=== PATIENT | female | born 1945 | race Caucasian/White ===

== ENCOUNTER 2022-03-10 12:25 | Inpatient (IN) | payer MEDICARE, OTHER ==
[~2022-03-10] VITALS: Ht 165.1 cm; Wt 63.5 kg
[2022-03-10 13:13] LABS: HEMATOCRIT 38.7 % (31.2-41.9); MEAN CORPUSCULAR HEMOGLOBIN 31.9 uug (24.7-32.8); MEAN CORPUSCULAR VOLUME 93.1 fL (75.5-95.3); PLATELET COUNT (AUTO) 253 K/uL (179-408)
--- NOTE | 2022-03-10 13:24 | NUR ---
Paged Dr Bradford for neuro consult, awaiting call back.
[2022-03-10 13:34] LABS: CREATININE 0.9 mg/dL (0.6-1.3)
--- NOTE | 2022-03-10 13:34 | NUR ---
Dr Bradford spoke to Dr Hopper for nuero consult.
[2022-03-10 13:39] LABS: BILIRUBIN,TOTAL 0.4 mg/dL (0.2-1.0); TOTAL PROTEIN, SERUM 7.3 g/dL (6.4-8.2)
--- NOTE | 2022-03-10 16:20 | NUR ---
Pt to be admitted to TELE by Samuel Duron NP.
--- NOTE | 2022-03-10 17:00 | NUR ---
Pt transfered to tele bed 312.
--- NOTE | 2022-03-10 17:30 | NUR ---
RECEIVED PT FROM ER, NO PAIN,NO DISTRESS, NO OTHER COMPLAINS VERBALIZED FROM THE PATIENT
[2022-03-10] MEDS ORDERED: ONDANSETRON 4 MG/2 ML VIAL IV PRN (18:00)
[2022-03-10] MEDS ORDERED: MAGNESIUM HYDROXIDE 30 ML LIQUID UDC PO PRN (18:00)
[2022-03-10] MEDS ORDERED: HYDROCODONE/APAP 5-325MG TABLET PO PRN (18:00)
[2022-03-10] MEDS ORDERED: ACETAMINOPHEN 325 MG TABLET PO PRN (18:00)
--- NOTE | 2022-03-10 18:00 | NUR ---
PATIENT SAID SHE IS FEELING A BIT ITCHY AND ALLERGIC. REPORTED TO FLORENCE COLON.
[2022-03-10] MEDS: ASPIRIN 81 MG TAB.CHEW PO SCH (18:18)
[2022-03-10] MEDS ORDERED: hydrOXYzine HCL 10 MG TABLET PO PRN (18:45)
--- NOTE | 2022-03-10 19:40 | NUR ---
Received patient lying in bed. AAOX4. In no apparent distress. Denies any pain or SOB. NIHHS -0. NSR on tele with HR of 77/min. IV site on left FA intact and patent. Needs assessed and attended to. Safety measure initiated and call light within reached.
[2022-03-10 20:20] VITALS: BP 120/55
[2022-03-10] MEDS: ATORVASTATIN 40 MG TABLET PO SCH ×2 (20:21→20:36)
[2022-03-11 00:06] VITALS: BP 125/60
[2022-03-11] MEDS ORDERED: PANTOPRAZOLE SODIUM 40 MG TABLET.DR PO SCH (07:00)
--- NOTE | 2022-03-11 08:00 | NUR ---
AWAKE ALERT AND ORIENTED X3 DENIES CHEST PAIN OR SOB, SR ON MONITOR
[2022-03-11] MEDS: ASPIRIN 81 MG TAB.CHEW PO SCH (08:10)
[2022-03-11 08:13] LABS: HEMATOCRIT 36.8 % (31.2-41.9); MEAN CORPUSCULAR HEMOGLOBIN 31.9 uug (24.7-32.8); MEAN CORPUSCULAR VOLUME 94.4 fL (75.5-95.3); PLATELET COUNT (AUTO) 222 K/uL (179-408)
[2022-03-11 08:26] LABS: THYROID STIMULATING HORMONE 2.76 mIU/mL (0.358-3.740)
[2022-03-11 08:39] LABS: CREATININE 1.2 mg/dL (0.6-1.3); MAGNESIUM 2.2 mg/dL (1.8-2.4); POTASSIUM 4.2 mmol/L (3.5-5.1)
[2022-03-11] MEDS ORDERED: SWABABLE VALVE TRANSFER SET EA MC ONE (09:27)
[2022-03-11] MEDS ORDERED: IV NORMAL SALINE 250 ML IV ONE (09:27)
[2022-03-11] MEDS ORDERED: IOHEXOL 350 100 ML INFUS..BTL ONE (09:27)
[2022-03-11] MEDS ORDERED: methylPREDNISolone SOD SUCC 125 MG/2 ML VIAL IV ONE (10:30)
[2022-03-11 11:51] VITALS: BP 128/65
--- NOTE | 2022-03-11 12:00 | NUR ---
HOSPITALIST SPOKE WITH PATIENT REGARDING CT ORDER VERSUS PATIENT WITH PAST HISTORY OF IODINE REACTION, PER HOSPITALIST OK FOR CT ORDERED WITH PRE-MED OF SOLU-MEDROL. TO NUCLEAR MEDS AFTER.
--- NOTE | 2022-03-11 12:56 | NUR ---
NO ACUTE CHANGE FROM MORNING ASSESSMENTS. SR ON MONITOR
[2022-03-11] MEDS ORDERED: ASPI81TA31 PO (14:43)
[2022-03-11] MEDS ORDERED: CHOL4PAC5 PO (14:43)
--- NOTE | 2022-03-11 15:00 | NUR ---
discharge order given by hospitalist, director case management aware.
--- NOTE | 2022-03-11 16:15 | NUR ---
DISCHARGE MEDICATION AND FOLLOW-UP INSTRUCTION GIVEN TO PATIENT. SEEN BY DR ONTIVEROS FOR NEURO SEE NOTES
--- NOTE | 2022-03-11 16:34 | NUR ---
discharge home stable accompanied by
== END 2022-03-11 16:30 | disposition home or self-care (01) | DRG 69 ==
LOC: ER 12:25 → TELE3 16:26
PROVIDERS: ADMIT Nurse Practitioner Family; ATTEND Nurse Practitioner Family
DX: G45.9 Transient cerebral ischemic attack, unspecified (principal); R47.01 Aphasia; Z79.82 Long term (current) use of aspirin; Z20.822 Contact with and (suspected) exposure to COVID-19; E78.5 Hyperlipidemia, unspecified; T50.995A Adverse effect of other drugs, medicaments and biological substances, initial encounter; Y92.009 Unspecified place in unspecified non-institutional (private) residence as the place of occurrence of the external cause; M79.7 Fibromyalgia; R29.700 NIHSS score 0
CPT/HCPCS: 36415; 70450; 70496; 83735; 84443; 84484; 85025; 93005; 93307; 97161; A4663; G0378; J2930; J7040; Q9967